=== PATIENT | female | born 1965 | race Caucasian/White ===

== ENCOUNTER 2018-03-08 10:37 | Emergency (ER) | END 2018-03-08 13:07 | disposition home or self-care (01) ==

== ENCOUNTER 2018-09-28 06:04 | Day surgery (SDC) | payer OTHER ==
[2018-09-27 11:49] VITALS: BMI 33.7
[~2018-09-28] VITALS: Ht 157.5 cm; Wt 82.7 kg
[2018-09-28] VITALS (14 sets, daily range): BP systolic 93–118; BP diastolic 51–70; PULSE 74–83; RESP 12–20; Ht 157.5 cm; Wt 82.7 kg
[~2018-09-28 06:04] MED LIST: NAPR-985 PO; PRED20TA PO; TRAM50TA2 PO
--- NOTE | 2018-09-28 06:56 | PREAC ---
Date/Time of Note Date/Time of Note DATE: 09/28/18 TIME: 06:51 Anesthesia Eval and Record Evaluation Time Pre-Procedure Interview DATE: 09/28/18 TIME: 06:51 Age 53 Sex female NPO: 8 hrs Preoperative diagnosis Epidermal Cysts Mid Upper bACK aND MId CHest Planned procedure Excision Of Epidermal Cysts Mid Back And Mid Chest Past Medical History Past Medical History: Includes Cardio: HTN, Dyslipidemia Endo: Diabetes Pulm: Other Neuro: Other Musculoskeletal: Osteoarthritis Renal: Other Hepatic: Other GI: Obesity Heme: Other Psych: Other Infection(s): Other Recreational drugs: Other : Other Surgery & Anesthesia Issues Aspiration risk Meds Anticoagulation: No Beta Wilbert within 24 hr: No Reason Beta Wilebrt not given: Pt. not on B-Wilbert Active Scripts Prednisone* (Prednisone*) 20 Mg Tab, 40 MG PO DAILY for 4 Days, TAB Prov:FATEMEH DURÁN PA-C 03/08/18 Naproxen* (Naprosyn*) 500 Mg Tablet, 500 MG PO BID PRN for PAIN AND/OR INFLAMMATION, #30 TAB Prov:FATEMEH DURÁN PA-C 03/08/18 Tramadol HCl (Tramadol HCl) 50 Mg Tablet, 50 MG PO Q6 PRN for PAIN, #20 TAB Prov:FATEMEH DURÁN PA-C 03/08/18 Meds reviewed: Yes Allergies Coded Allergies: No Known Drug Allergy (Verified Allergy, Unknown, 09/27/18) Allergies Reviewed: Yes Labs/Studies Labs Reviewed: Reviewed by anesthesiologist test: Negative Studies: ECG, CXR Pre-procedure Exam Airway: Adequate mouth opening Mallampati: Mallampati II Teeth: Normal Lung: Normal Heart: Normal Anticipated Difficutly with IV: Anticipate Difficult IV Access ASA Physical Status ASA physical status: 2 Emergency: None Planned Anesthetic General/MAC: Mask Neuraxial: Other Nerve block: Other Planned Pain Management Parenteral pain med, Local by surgeon Pre-operative Attestations Prior to commencing anesthesia and surgery, the patient was re-evaluated, there was verification of: *The patient's identity *The results of appropriate recent lab work and preoperative vital signs *The above evaluation not changing prior to induction *Anesthetic plan, risk benefits, alternative and complications discussed with patient/family; questions answered; patient/family understands, accepts and wishes to proceed. DIGNA FONG MD Sep 28, 2018 06:56
[2018-09-28] MEDS ORDERED: LIDOCAINE 2% (SDV) 5 ML INJ ONE (07:03)
[2018-09-28] MEDS ORDERED: GLYCOPYRROLATE 0.4 MG INJ ONE (07:03)
[2018-09-28] MEDS ORDERED: PROPOFOL 20 ML ONE (07:03)
[2018-09-28] MEDS ORDERED: MIDAZOLAM 1 MG/ML 2 ML INJ ONE (07:03)
[2018-09-28] MEDS ORDERED: ROCURONIUM 50 MG INJ ONE (07:03)
[2018-09-28] MEDS ORDERED: NEOSTIGMINE 3 MG/3 ML SYRINGE ONE (07:03)
[2018-09-28] MEDS ORDERED: FENTAnyl 50 MCG/ML VIAL ONE (07:03)
[2018-09-28] MEDS ORDERED: DEXAMETHASONE 4 MG/ML 5 ML INJ ONE (07:10)
[2018-09-28] MEDS ORDERED: HYDROCORTISONE 100 MG INJ ONE (07:11)
[2018-09-28] MEDS ORDERED: ONDANSETRON 4 MG INJ ONE ×2 (07:11→09:33)
[2018-09-28] MEDS ORDERED: BUPIVACAINE 0.5%/EPI (SDV) 30 ML INJ ONE (07:23)
[2018-09-28] MEDS ORDERED: BUPIVACAINE 0.5% (SDV) 30 ML INJ ONE (07:23)
[2018-09-28] MEDS ORDERED: LIDOCAINE 1% (MDV) 20 ML INJ ONE (07:45)
[2018-09-28] MEDS ORDERED: ASPI-817 PO (07:49)
[2018-09-28] MEDS ORDERED: LINA5TAB PO (07:49)
[2018-09-28] MEDS ORDERED: LISI10TA2 PO (07:49)
[2018-09-28] MEDS ORDERED: GLYB5TAB3 PO (07:49)
[2018-09-28] MEDS ORDERED: MTF1000T PO (07:49)
--- NOTE | 2018-09-28 08:18 | HPN ---
Date/Time of Note Date/Time of Note DATE: 09/28/18 TIME: 08:18 Interval H&P Admission Note Pt. seen H&P reviewed: No system changes KB GIRON Sep 28, 2018 08:18
--- NOTE | 2018-09-28 09:19 | NUR ---
RECEIVED VERBALLY RESPONSIVE IN NO DISTRESS WITH INCISION IN LEFT UPPER BACK AND MID UPPER CHEST CLEAR WITH DERMABOND INTACT. BREATHING WITH EASE.
--- NOTE | 2018-09-28 09:26 | PAC ---
Date/Time of Note Date/Time of Note DATE: 09/28/18 TIME: 09:26 Post-Anesthesia Notes Post-Anesthesia Note Last documented vital signs Vital Signs Date Temp Pulse Resp B/P (MAP) Pulse Ox O2 O2 Flow FiO2 Time Delivery Rate 09/28/18 98.8 83 20 118/70 100 Room Air 09:19 (86) Activity: WNL Respiratory function: WNL Cardiovascular function: WNL Mental status: Baseline Pain reasonably controlled: Yes Hydration appropriate: Yes Nausea/Vomiting absent: No DIGNA FONG MD Sep 28, 2018 09:26
[2018-09-28] MEDS ORDERED: LABETALOL HCL 20MG INJ IV PRN (09:30)
[2018-09-28] MEDS ORDERED: FENTAnyl 50 MCG/ML VIAL IV PRN ×3 (09:30)
[2018-09-28] MEDS ORDERED: HYDROmorphONE 1 MG/5 ML IV SYRINGE IV PRN ×3 (09:30)
[2018-09-28] MEDS ORDERED: MEPERIDINE 25 MG INJ IV PRN (09:30)
[2018-09-28] MEDS ORDERED: OXYCODONE/ACETAMINOPHEN (5/325) TAB PO PRN (09:30)
[2018-09-28] MEDS ORDERED: ONDANSETRON 4 MG INJ IV PRN (09:30)
[2018-09-28] MEDS ORDERED: METOCLOPRAMIDE 10 MG INJ IV PRN (09:30)
[2018-09-28] MEDS ORDERED: hydrALAzine 20 MG INJ IV PRN (09:30)
[2018-09-28] MEDS ORDERED: EPHEDrine SULFATE 50 MG/5 ML SYG IV PRN (09:30)
[2018-09-28] MEDS ORDERED: HYDROmorphONE 1 MG/5 ML IV SYRINGE IV ONE (09:33)
--- NOTE | 2018-09-28 09:49 | OPR ---
Date/Time of Note Date/Time of Note DATE: 09/28/18 TIME: 09:43 Operative Report Procedure Date: Sep 28, 2018 Preoperative Diagnosis Subcutaneous lesion of the left back 1 cm and right clavicle regions 2 cm Postoperative Diagnosis Same Operation/Procedure Performed Excision of subcutaneous lesions and accompanying excess skin from the left back 1 cm, right clavicle 2 cm Adjacent soft tissue transfer 3 cm total Surgeon see signature line Dairy Consultant none Anesthesia Type: general Estimated Blood Loss: minimal Transfusion none Specimen Subcutaneous lesions x2 Grafts/Implants none Complications none Pt Condition Post Procedure: stable Disposition: PACU Indications Patient has pigmented lesion at the right clavicle that is subcutaneous and mobile and causing pain and discomfort and roughly 2 cm. Patient also has another lesion along the left back medial to the scapula that is causing pain and discomfort that measures about 1 cm. For symptomatic relief she will undergo excision. Procedure Description Patient was laid in the lateral left side up decubitus position and her clavicle and back were prepped and draped in sterile manner using Betadine solution. Timeout was conducted. A solution containing 0.5% Marcaine with epinephrine and 1% lidocaine without epinephrine was mixed and used for local analgesia. Anesthesia was infiltrated using the solution at the right clavicle region in the midclavicular area where there was a 1 cm lesion. Once the skin was infiltrated with anesthesia an elliptical incision 2 cm in diameter was created with a 15 blade through the dermis down to the subcutaneous tissue. I noted dark sebum that was pigmented coming from the wound. I therefore circumferentially excised this lesion along with accompanying subcutaneous tissue and excess skin. After this I mobilized the adjacent subcutaneous tissues so that I can reapproximated without tension and place 4 interrupted 3-0 Vicryl sutures with buried knots incorporating the dermis to close the gap created. Wet dry dressings were applied and the incision was covered with Dermabond. I then turned my attention to the left back where the patient had a 1 cm pigmented lesion very similar to the one along the clavicle area. Again I infiltrated the area with the local analgesic and thereafter created an elliptical incision measuring 2 cm in diameter and excised the skin and accompanying subcutaneous tissue and took out the lesion intact and sent to the off to pathology. Using the Metzenbaum scissors subcutaneous tissue was released from the dermis and therefore adjacent tissue was transferred circumferentially to close the gap. The area was irrigated ; hemostasis was carried out with cautery and thereafter interrupted 3-0 Vicryl sutures were used to close the skin incision incorporating the dermis. Patient tolerated the procedure well and was disposition to recovery in stable condition. All instrument and needle and sponge counts were correct at the end of the case. KB GIRON Sep 28, 2018 09:49
--- NOTE | 2018-09-28 09:49 | NUR ---
STATED SHE FEELS MUCH BETTER AFTER PAIN MEDICATION GIVEN 2X, TOLERABLE. ZOFRAN GIVEN EARLIER FOR COMPLAIN OF NAUSEA, RELIEVED AT THIS TIME. NO S/S BLEEDING.
[2018-09-28] MEDS ORDERED: HYDROCODONE/APAP (5/325) TAB PO PRN ×2 (10:00)
--- NOTE | 2018-09-28 10:06 | NUR ---
AWAKE AND ALERT, DENIES PAIN AT THIS TIME. NO S/S BLEEDING.
--- NOTE | 2018-09-28 10:15 | NUR ---
STABLE, DENIES PAIN. REPORT TO LOLA MORTENSEN. DAUGHTER UPDATED ON STATUS AND PLANNED TRANSFER TO [facility], WILL WAIT IN [facility]. TRANSFERRED, COMFORTABLE.
--- NOTE | 2018-09-28 10:39 | NUR ---
RE: DISCHARGE PATIENT DISCHARGED HOME. ALL DISCHARGE INSTRUCTIONS EXPLAINED AND PROVIDED TO PATIENT AND FAMILY. IV REMOVED. SURGICAL SITE CLEAN AND DRY WITHOUT ANY BLEEDING OR COMPLICATIONS. PATIENT VERBALIZED READINESS FOR DISCHARGE AND UNDERSTANDING OF INSTRUCTIONS PROVIDED. STABLE TO LEAVE THE HOSPITAL.
== END 2018-09-28 10:40 | disposition home or self-care (01) ==
LOC: SDS 06:04
PROVIDERS: ATTEND Surgery Surgical Critical Care
DX: L72.0 Epidermal cyst (principal); I10 Essential (primary) hypertension; E11.9 Type 2 diabetes mellitus without complications; Z79.4 Long term (current) use of insulin; E66.9 Obesity, unspecified; Z68.33 Body mass index [BMI] 33.0-33.9, adult
CPT/HCPCS: 14000; 82962; J1100; J1170; J1720; J2250; J2405; J2710; J3010; Z7610; 88304; 88307